=== PATIENT | female | born 1985 | race Asian ===

== ENCOUNTER 2017-07-25 10:27 | Emergency (ER) | payer OTHER ==
--- NOTE | 2017-07-25 10:46 | ED Physician Documentation ---
PD HPI CHEST PAIN - Stated complaint Stated Complaint: CHEST PX/L ARM NUMB - Chief complaint Chief Complaint: Cardiac - History obtained from History obtained from: Patient - History of Present Illness Timing - onset: How many days ago (3) Timing - onset during: Rest Timing - duration: Days (3) Timing - details: Abrupt onset, Intermittant Pain level max: 2 Pain level now: 0 Quality: Aching Location: Substernal, Left chest Radiation: Other (non-radiating) Improved by: Nothing Worsened by: Other (nothing) Associated symptoms: Palpitations. No: Shortness of air, Diaphoresis, Nausea, Vomiting, Feeling faint / dizzy, General Weakness, Cough Recently seen: Not recently seen Review of Systems Ten Systems: 10 systems reviewed and negative Constitutional: denies: Fever, Chills Ears: denies: Ear pain Nose: denies: Rhinorrhea / runny nose, Congestion Throat: denies: Sore throat Cardiac: reports: Palpitations Respiratory: denies: Cough GI: denies: Abdominal Pain, Nausea, Vomiting, Diarrhea : denies: Dysuria, Frequency, Hesitancy, Now EGA Skin: denies: Rash Musculoskeletal: denies: Neck pain, Back pain, Extremity swelling PD PAST MEDICAL HISTORY - Past Medical History Past Medical History: No - Past Surgical History Past Surgical History: No - Present Medications Home Medications: Ambulatory Orders Medication Instructions Recorded Confirmed Bcp 07/25/17 - Allergies Allergies/Adverse Reactions: Allergies Allergy/AdvReac Type Severity Reaction Status Date / Time No Known Drug Allergies Allergy Verified 07/25/17 10:43 - Social History Does the pt smoke?: Yes Smoking Status: Current every day smoker Does the pt drink ETOH?: No Does the pt have substance abuse?: No - Immunizations Immunizations are current?: Yes - POLST Patient has POLST: No PD ED PE NORMAL - Vitals Vital signs reviewed: Yes - General General: Alert and oriented X 3, No acute distress, Well developed/nourished - HEENT HEENT: PERRL, Moist mucous membranes - Neck Neck: Supple, no meningeal sign - Cardiac Cardiac: RRR, Strong equal pulses - Respiratory Respiratory: No respiratory distress, Clear bilaterally - Abdomen Abdomen: Soft, Non tender, Non distended - Back Back: No spinal TTP - Derm Derm: Warm and dry - Extremities Extremities: No edema, No calf tenderness / cord - Neuro Neuro: Alert and oriented X 3 - Psych Psych: Normal mood, Normal affect Results - Vitals Vitals: Vital Signs - 24 hr 07/25/17 07/25/17 10:40 11:46 Temperature 36.8 C Heart Rate 80 74 Respiratory 18 14 Rate Blood Pressure 131/80 H 107/80 O2 Saturation 100 100 Oxygen O2 Source Room air - EKG (time done) 1034 Rate: Rate (enter#) (84) Rhythm: NSR [place]: Anterior hemiblock (LAFB) Intervals: Normal IN QRS: Normal Ischemia: Non specific changes - Labs Labs: Laboratory Tests 07/25/17 07/25/17 07/25/17 11:04 11:04 11:04 WBC 6.2 RBC 4.41 Hgb 13.9 Hct 42.2 MCV 95.7 MCH 31.6 H MCHC 33.0 RDW 12.6 Plt Count 186 MPV 9.5 Neut # 3.7 Lymph # 1.9 [place] # 0.5 Eos # 0.1 Baso # 0.1 Absolute Nucleated RBC 0.00 Nucleated RBC % 0.0 Sodium 137 Potassium 3.6 Chloride 100 L Carbon Dioxide 24 Anion Gap 13.0 BUN 10 Creatinine 0.8 Estimated GFR (MDRD) 85 L Glucose 86 Calcium 8.9 Phosphorus 2.8 Magnesium 1.9 Total Bilirubin 1.0 AST 26 ALT 27 Alkaline Phosphatase 46 Troponin I < 0.04 Total Protein 7.7 Albumin 4.5 Globulin 3.2 Albumin/Globulin Ratio 1.4 Lipase 23 TSH Free T4 07/25/17 11:04 WBC RBC Hgb Hct MCV MCH MCHC RDW Plt Count MPV Neut # Lymph # [place] # Eos # Baso # Absolute Nucleated RBC Nucleated RBC % Sodium Potassium Chloride Carbon Dioxide Anion Gap BUN Creatinine Estimated GFR (MDRD) Glucose Calcium Phosphorus Magnesium Total Bilirubin AST ALT Alkaline Phosphatase Troponin I Total Protein Albumin Globulin Albumin/Globulin Ratio Lipase TSH 0.97 Free T4 1.00 - Rads (name of study) cxr Radiology: Prelim report reviewed, EMP read contemporaneously, See rad report ( normal) PD MEDICAL DECISION MAKING - ED course Complexity details: reviewed results, re-evaluated patient, considered differential (No ST elevation CT, no aortic dissection, no PE, no tension pneumothorax, no aortic aneurysm), d/w patient ED course: Patient is a 31-year-old female who presents to the emergency department with palpitations. These coincide to premature ventricular contractions on her telemetry monitoring. No evidence of other arrhythmias. Negative troponin. No evidence of pulmonary embolus or aortic dissection. Will have her follow-up with her doctor for further evaluation and care. Patient counseled regarding signs and symptoms for which I believe and urgent re-evaluation would be necessary. Patient with good understanding of and agreement to plan and is comfortable going home at this time This document was made in part using voice recognition software. While efforts are made to proofread this document, sound alike and grammatical errors may occur. Departure - Departure Disposition: 01 Home, Self Care Clinical Impression: PVC (premature ventricular contraction), Atypical chest pain Condition: Good Instructions: ED Palpitations Follow-Up: Koffi Farfan MD [Primary Care Provider] - Within 1 week Comments: Return if you worsen. You appear to have premature ventricular contractions on the hydro generation supervisor today. Your doctor may choose to start you on medications to help with your symptoms. Discharge Date/Time: 07/25/17 11:54
[2017-07-25 11:11] LABS: BASOPHILS # (AUTO) 0.1 10^3/uL (0.0-0.1); EOSINOPHILS # (AUTO) 0.1 10^3/uL (0.0-0.7); EOSINOPHILS % (AUTO) 1.2 %; HGB - HEMOGLOBIN 13.9 g/dL (12.0-16.0); LYMPHOCYTES # (AUTO) 1.9 10^3/uL (1.5-3.5); LYMPHOCYTES % (AUTO) 29.9 %; MEAN CORPUSCULAR HEMOGLOBIN 31.6 pg (27.0-31.0); MEAN CORPUSCULAR VOLUME 95.7 fL (81.0-99.0); MEAN PLATELET VOLUME 9.5 fL (7.9-10.8); MONOCYTES # (AUTO) 0.5 10^3/uL (0.0-1.0); MONOCYTES % (AUTO) 7.8 %; NEUTROPHILS # (AUTO) 3.7 10^3/uL (1.5-6.6); NEUTROPHILS % (AUTO) 60.1 %; PLT - PLATELET COUNT 186 10^3/uL (130-450); RED BLOOD COUNT 4.41 10^6/uL (4.20-5.40); RED CELL DISTRIBUTION WIDTH 12.6 % (12.0-15.0); WHITE BLOOD COUNT 6.2 x10^3/uL (4.8-10.8)
[2017-07-25 11:22] LABS: ALBUMIN 4.5 g/dL (3.2-5.5); ALBUMIN/GLOBULIN RATIO 1.4 (1.0-2.2); CALCIUM 8.9 mg/dL (8.5-10.3); CREATININE 0.8 mg/dL (0.4-1.0); MAGNESIUM 1.9 mg/dL (1.7-2.8); PHOSPHORUS 2.8 mg/dL (2.5-4.6); TOTAL PROTEIN 7.7 g/dL (6.7-8.2)
--- NOTE | 2017-07-25 11:32 | XRAY Report ---
EXAM: CHEST RADIOGRAPHY EXAM DATE: 07/25/2017 11:15 AM. CLINICAL HISTORY: Chest pain. COMPARISON: None. TECHNIQUE: 1 view. FINDINGS: Lungs/Pleura: No focal opacities evident. No pleural effusion. No pneumothorax. Mediastinum: Within exam limitations, the cardiomediastinal contour is normal. Other: None. IMPRESSION: Negative portable chest. [facility] Referring Provider Line: [phone] SITE ID: [id number]
[2017-07-25 11:38] LABS: THYROID STIMULATING HORMONE 0.97 uIU/mL (0.34-5.60)
[2017-07-25 11:48] VITALS: BP 107/80
== END 2017-07-25 11:54 | disposition home or self-care (01) ==
LOC: ED 10:27
DX: I49.3 Ventricular premature depolarization (principal); R07.89 Other chest pain; I44.4 Left anterior fascicular block; R94.31 Abnormal electrocardiogram [ECG] [EKG]; F17.200 Nicotine dependence, unspecified, uncomplicated
CPT/HCPCS: 36415; 71045; 80053; 83690; 83735; 84100; 84439; 84443; 84484; 85025; 93005; 99283